=== PATIENT | male | born 1975 | race Hispanic/Latino ===

== ENCOUNTER 2020-08-24 00:03 | Emergency (ER) | payer OTHER ==
[~2020-08-24] VITALS: Ht 172.7 cm; Wt 75.3 kg
[2020-08-24 03:12] VITALS: BP 133/63
[2020-08-24] MEDS ORDERED: KETOROLAC 30MG VIAL (30MG/ML) IV ONE (04:30)
[2020-08-24] MEDS ORDERED: CEFTRIAXONE SODIUM 1 GM IVP ONE (04:30)
[2020-08-24] MEDS ORDERED: IBUP-2070 PO (04:35)
[2020-08-24] MEDS ORDERED: CIPR-278 PO (04:35)
[2020-08-24 05:01] VITALS: BP 129/66
== END 2020-08-24 05:05 | disposition home or self-care (01) ==
LOC: EDH 00:03
DX: S80.12XA Contusion of left lower leg, initial encounter (principal); S80.812A Abrasion, left lower leg, initial encounter; Z79.899 Other long term (current) drug therapy; Z88.1 Allergy status to other antibiotic agents; V09.9XXA Pedestrian injured in unspecified transport accident, initial encounter; Y93.89 Activity, other specified; Y92.89 Other specified places as the place of occurrence of the external cause; Y99.8 Other external cause status
CPT/HCPCS: 73600; 96374; 96375; 99284; J0696; J1885

== ENCOUNTER 2024-11-12 18:51 | Emergency (ER) | payer SELFPAY ==
[~2024-11-12] VITALS: Ht 172.7 cm; Wt 77.1 kg
[~2024-11-12 18:51] MED LIST: CIPR-278 PO; IBUP-1492 PO
[2024-11-12 19:47] LABS: IMMATURE GRANULOCYTE ABSOLUTE 0.01 K/uL (0-1); NUCLEATED RED BLOOD CELLS 0.0 % (0.0-0.19); PLATELET COUNT (AUTO) 117 K/uL (130-400); RED BLOOD CELL COUNT(AUTO) 4.58 MIL/uL (4.50-6.20); RED CELL DISTRIBUTION WIDTH 12.5 % (11.0-15.5); WHITE BLOOD COUNT (AUTO) 4.7 K/uL (4.8-10.8)
[2024-11-12 19:48] LABS: APPEARANCE,URINE CLEAR (CLEAR); GLUCOSE, URINE (UA) NEGATIVE (NEGATIVE); LEUKOCYTE ESTERASE ,URINE NEGATIVE Leu/uL (NEGATIVE); NITRATE,URINE NEGATIVE (NEGATIVE); OCCULT BLOOD,URINE SMALL (NEGATIVE)
--- NOTE | 2024-11-12 19:50 | EKG ---
[facility] Test Date: 2024-11-12 Test Time: 19:45:26 Pat Name: BOBBI SEALS Department: ED Room: Gender: M Director Of Marketing: [id number] : 1975 Requested By: IDALIA WALLACE Order Number: [id number] Reading MD: Maykel Granados Measurements Intervals [place] Rate: 100 P: 56 HI: 153 QRS: 33 QRSD: 81 T: 10 QT: 320 QTc: 413 Interpretive Statements Sinus tachycardia No previous ECG available for comparison Electronically Signed On 11-13-2024 13:23:39 CDT by Maykel Granados Please click the below link to view image of tracing.
[2024-11-12] MEDS: 0.9%NACL 1000ML 2,313 ML IV SCH (19:55)
[2024-11-12 19:58] LABS: ADD UA MICROSCOPIC YES
[2024-11-12 19:58] LABS: CREATININE 0.9 mg/dL (0.5-1.3); GLOMERULAR FILTR. RATE CALC 104.0 mL/min (>90); GLUCOSE,RANDOM 107.0 mg/dL (70-105); SODIUM SERUM 132.0 mmol/L (136-145); UREA NITROGEN, BLOOD 9.0 mg/dL (7-18)
[2024-11-12 20:09] LABS: CREATINE KINASE, TOTAL 131.0 U/L (21-232)
[2024-11-12 20:11] LABS: COVID19 (SARS ANTIGEN RAPID) PRESUMPTIVE NEGATIVE (NEGATIVE); INFLUENZA TYPE A Negative For Type A (NEGATIVE); INFLUENZA TYPE B Negative For Type B (NEGATIVE)
[2024-11-12 20:17] LABS: BAND NEUTROPHILS % (MANUAL) 25 % (0-2); LYMPHOCYTES % (MANUAL) 17 % (22-44); MAN.DIFF COMMENT-IMPRESSION MANUAL DIFFERENTIAL; MONOCYTES % (MANUAL) 5 % (2-9); REACTIVE LYMPHOCYTES 4 % (0-0); SEGMENTED NEUTROPHILS % 49 % (40-70)
[2024-11-12 20:19] LABS: PLATELET MORPHOLOGY COMMENT MARKED DECREASE
--- NOTE | 2024-11-12 20:38 | HMCIMG ---
EXAM: CR Chest, 1 View. CLINICAL HISTORY: cough COMPARISON: None provided. FINDINGS: LUNGS: There is no mass, infiltrate, or acute pulmonary abnormality. PLEURAL SPACES: No evidence of pleural effusion or pneumothorax. MEDIASTINUM: The cardiomediastinal silhouette is within normal limits. BONES: No aggressive appearing osseous lesion seen. IMPRESSION: No acute cardiopulmonary pathology is evident. /[place]
--- NOTE | 2024-11-12 21:22 | ERN ---
ED Note History of Present Illness Stated Complaint: FEVER, COUGH, SOB Chief Complaint: Sepsis Time Seen by MD: 19:15 Time Seen by Midlevel: 19:15 Dictation: The patient is a 48-year-old male with no past medical history who presents to the emergency department with complaints of headache, fever, nonproductive cough, body aches, chest pain when coughing onset Saturday. Reports he was starting to feel better but then he started with the symptoms again yesterday. Denies any abdominal pain, nausea vomiting or diarrhea. Allergies: Coded Allergies: No Known Allergies (Unverified Allergy, Unknown, 08/24/20) Home Meds Active Scripts Ibuprofen (Ibuprofen) 600 Mg Tablet, 600 MG PO Q6H PRN for PAIN for 10 Days, #40 TAB Prov:CAMILO RAMIREZ MD 08/24/20 Ciprofloxacin HCl (Cipro) 500 Mg Tablet, 500 MG PO BID for WOUND , #14 TAB Prov:CAMILO RAMIREZ MD 08/24/20 Past Medical History Past Medical History: No Pertinent History Surgical History: None Family History: Negative Social History: Drugs RN Note Reviewed/Agreed w/PFSH: Yes Review of System Dictation Constitutional: Negative for fever,chills, and weight loss positive for fever, body aches Eyes: Negative for injury, pain,redness, and discharge ENT: Negative for injury,pain or swelling Cardiovascular: Negative for chest pain, palpitations, and edema Respiratory: Negative for shortness of breath, and wheezing, positive for cough Abdomen/GI: Negative for abdominal pain, nausea, vomiting, diarrhea, and constipation Back: Negative for injury and pain : Negative for injury, bleeding and discharge MS/Extremity: Negative for injury and deformity Skin: Negative for rash, and discoloration Neuro: Negative for weakness, numbness, tingling, and seizure positive for headache Psych: Negative for suicide ideation, homicidal ideation, and hallucinations Initial Vital Sign VS Vital Signs Date Time Temp Pulse Resp B/P (MAP) Pulse Ox O2 Delivery O2 Flow Rate FiO2 11/12/24 19:12 101.1 110 22 134/79 95 Room Air 11/12/24 19:28 0 21 Physical Exam Dictation Vital Signs reviewed General Appearance: Alert, oriented x 3, no acute distress, well developed, nourished. Head and Face: non-traumatic. Eyes: PERRL, pink conjunctivas, eyelid no trauma, anterior chamber with arcus senilis. Ears: Pinnas intact and no signs of trauma or erythema ear canals clear and no discharge TM no erythema Nose: No discharge, no bleeding. Oropharynx: Mouth normal, tongue pink. pharynx clear,no erythema, tonsils no exudates, no abscesses noted, mucous membrane moist Neck: Supple, non-tender, no thyromegaly, no masses, no JVD, no bruits Breast:Deferred Chest:No tenderness, no crepitus, no paradoxical movement, no retractions Lungs:Clear, well-ventilated, symmetric, no rales, no wheezing, no rhonchi, no stridor, good breath sounds bilaterally Heart: Regular rate, regular rhythm, no murmur, no gallops Vascular: no peripheral edema, Abdomen: Soft, positive bowel sounds, nondistended, no guarding, nontender, no rebound, no masses no hepatomegaly, no splenomegaly, no Gregorio's sign, no hernias. Rectal: Deferred Genital: Deferred Neurological: Normal speech, motor function intact, sensory function intact Musculoskeletal: Neck nontender, full range of motion, back nontender, full range of motion, Extremities: nontender, full range of motion Skin: Color pink, dry, no turgor, no rash, no lacerations, no abrasions, no contusions. Lymphatic: Deferred Results (Laboratory/Radiology) Laboratory/Radiology Laboratory Tests Test 11/12/24 19:30 11/12/24 19:38 Urine Color LIGHT-YELLOW (YELLOW) Urine Appearance CLEAR (CLEAR) Urine pH 6.0 (5.0-8.0) Urine Specific [place] 1.007 (1.001-1.031) Urine Protein NEGATIVE mg/dL (NEGATIVE) Urine Glucose (UA) NEGATIVE mg/dL (NEGATIVE) Urine Ketones NEGATIVE mg/dL (NEGATIVE) Urine Occult Blood SMALL (NEGATIVE) H Urine Nitrate NEGATIVE (NEGATIVE) Urine Bilirubin NEGATIVE mg/dL (NEGATIVE) Urine Urobilinogen 0.2 mg/dL (0.2-1.0) Urine Leukocyte Esterase NEGATIVE Cate/uL Urine RBC 2-5 /HPF (0-1) H Urine WBC 0-1 /HPF (0-1) Urine Bacteria None /HPF (None Seen) Influenza Type A Antigen Negative For Type A Influenza Type B Antigen Negative For Type B SARS-CoV-2 Antigen (Rapid) PRESUMPTIVE NEGATIVE White Blood Count 4.7 K/uL (4.8-10.8) L Red Blood Count 4.58 MIL/uL (4.50-6.20) Hemoglobin 14.2 g/dL (14.0-18.0) Hematocrit 40.6 % (42-54) L Mean Corpuscular Volume 88.6 fL (79-99) Mean Corpuscular Hemoglobin 31.0 pg (27.0-33.0) Mean Corpuscular Hemoglobin Concent 35.0 g/dL (32.0-36.0) Red Cell Distribution Width 12.5 % (11.0-15.5) Platelet Count 117 K/uL (130-400) L Mean Platelet Volume 11.0 fL (7.5-10.5) H Immature Granulocyte % (Auto) 0.2 % (0-1) Neutrophils (%) (Auto) 71.8 % (40.0-77.0) Lymphocytes (%) (Auto) 19.7 % (21.0-51.0) L Monocytes (%) (Auto) 7.9 % (3.0-13.0) Eosinophils (%) (Auto) 0.0 % (0.0-8.0) Basophils (%) (Auto) 0.4 % (0.0-5.0) Neutrophils # (Auto) 3.3 K/uL (1.8-7.7) Lymphocytes # (Auto) 0.9 K/uL (1.0-4.8) L Monocytes # (Auto) 0.4 K/uL (0.1-1.0) Eosinophils # (Auto) 0.00 K/uL (0.00-0.70) Basophils # (Auto) 0.02 K/uL (0.00-0.20) Absolute Immature Granulocyte (auto 0.01 K/uL (0-1) Segmented Neutrophils % 49 % (40-70) Band Neutrophils % 25 % (0-2) H Lymphocytes % (Manual) 17 % (22-44) L Monocytes % (Manual) 5 % (2-9) Nucleated Red Blood Cells 0.0 % (0.0-0.19) Differential Comment MANUAL DIFFERENTIAL Reactive Lymphocytes 4 % (0-0) H White Cell Morphology Comment Platelet Morphology Comment MARKED DECREASE Red Blood Cell Morphology OVALOCYTES 1+ Sodium Level 132 mmol/L (136-145) L Potassium Level 3.7 mmol/L (3.5-5.1) Chloride Level 96 mmol/L (101-111) L Carbon Dioxide Level 29 mmol/L (21-32) Blood Urea Nitrogen 9 mg/dL (7-18) Creatinine 0.9 mg/dL (0.5-1.3) Glomerular Filtration Rate Calc 104 mL/min (>90) Random Glucose 107 mg/dL (70-105) H Lactic Acid Level 1.0 mmol/L (0.8-2.5) Total Calcium 8.3 mg/dL (8.5-10.1) L Total Creatine Kinase 131 U/L (21-232) Troponin I High Sensitivity 4 ng/L (4-75) REASON: cough ORDERING PHYSICIAN: IDALIA WALLACE [facility]OR[facility] PROCEDURE: CXR1VW - CHEST 1VW EXAM: CR Chest, 1 View. CLINICAL HISTORY: cough COMPARISON: None provided. FINDINGS: LUNGS: There is no mass, infiltrate, or acute pulmonary abnormality. PLEURAL SPACES: No evidence of pleural effusion or pneumothorax. MEDIASTINUM: The cardiomediastinal silhouette is within normal limits. BONES: No aggressive appearing osseous lesion seen. IMPRESSION: No acute cardiopulmonary pathology is evident. /[place] Labs Reviewed?: Yes EKG: (+) rhythm (Sinus tachycardia) EKG Comment: Date:11/12/2024 Time:1944 Ventricular rate:100 FL interval:153 QRS duration:81 QT/QTc:320/413 EKG interpretation: Sinus tachycardia Reviewed by ED Attending no STEMI ED Course ED Course Orders Procedure Category Date Status Time 12 Lead Ekg Tracing- EKG 11/12/24 Complete Technical 19:23 Cbc With Differential LAB 11/12/24 Complete 19:23 Blood Cult KINJAL 11/12/24 In Process 19:23 Urinalysis Profile LAB 11/12/24 Complete 19:23 Chest 1vw RAD 11/12/24 Resulted 19:23 Acetaminophen 500mg PHA 11/12/24 In Process Tab (Tylenol 500mg T 19:30 0.9%Nacl 1000ml (Ns PHA 11/12/24 In Process 1000ml) 19:30 Creatine Kinase, Total LAB 11/12/24 Complete 19:23 Troponin I High LAB 11/12/24 Complete Sensitivity 19:23 Lactic Acid LAB 11/12/24 Complete 19:23 Basic Metabolic Panel LAB 11/12/24 Complete 19:23 Guaifenesin-Codeine PHA 11/12/24 In Process Syrup 5ml (Robitussi 19:30 Covid19 (Sars Antigen LAB 11/12/24 Complete Rapid) 19:23 Influenza Type A & B, LAB 11/12/24 Complete Rapid 19:23 Manual Differential LAB 11/12/24 Complete 19:38 Current Medications Medications (Trade) Dose Ordered Sig/Taye Route PRN Reason Start Time Stop Time Status Last Admin Dose Admin Acetaminophen (TYLenol 500MG TAB) 1,000 mg ONCE PO 11/12/24 19:30 11/12/24 23:30 11/12/24 19:55 Guaifenesin/ Codeine Phosphate (RobiTUSSin AC 5 ML SYRUP) 10 ml ONCE PO 11/12/24 19:30 11/12/24 23:30 11/12/24 19:55 Sodium Chloride 2,313 ml @ 771 mls/hr ONCE IV 11/12/24 19:30 11/13/24 19:29 11/12/24 19:55 Vital Signs Date Time Temp Pulse Resp B/P (MAP) Pulse Ox O2 Delivery O2 Flow Rate FiO2 11/12/24 19:28 101.1 110 22 134/79 95 Room Air* 0 21 11/12/24 19:12 101.1 110 22 134/79 95 Room Air Medical Decision Making MDM The patient is a 48-year-old male with no past medical history who presents to the emergency department with complaints of headache, fever, nonproductive cough, body aches, chest pain when coughing onset Saturday. Reports he was starting to feel better but then he started with the symptoms again yesterday. Denies any abdominal pain, nausea vomiting or diarrhea. CBC showed mild leukopenia, mild thrombocytopenia, chemistry showed mild hyponatremia, hypochloremia, normal renal function, negative troponin, urinalysis unremarkable, serology negative. Chest x-ray showed no acute pathology.. Patient has symptoms consistent with a viral infection. On physical exam patient is in no acute distress, nontoxic appearance. Clear lung sounds bilaterally. Patient will be discharged to follow up with PCP. Differential diagnosis: Pneumonia, ACS, upper respiratory infection, dehydration Need for hospitalization: Patient does not meet criteria for hospitalization. There are no social concerns with this patient. DX & DISP Disposition: Discharge Departure Impression: Primary Impression: Viral illness Additional Impression: URI (upper respiratory infection) Condition: Stable Additional Instructions: Your symptoms correlated with a viral infection. Your chest x-ray showed no pneumonia. Please follow up with your primary doctor in 1-2 days. You can take Tylenol or ibuprofen as needed for fevers. Plenty of fluids. If anything worsens please return to the ER. FOLLOW-UP WITH PRIMARY CARE PROVIDER IN 1 TO 2 DAYS. TAKE MEDICATIONS DIRECTED HERE IN THE EMERGENCY ROOM. OKAY TO CONTINUE HOME MEDICATIONS UNLESS OTHERWISE DISCUSSED DURING YOUR VISIT IN THE EMERGENCY ROOM TODAY. RETURN TO YOUR NEAREST EMERGENCY ROOM IF SYMPTOMS WORSEN OR IF THERE IS NO IMPROVEMENT. CALL 911 IF YOU NEED IMMEDIATE ASSISTANCE. TAKE TYLENOL SPHD-NRB-CBVPLEC NEEDED AND IF NO CONTRAINDICATIONS ARE PRESENT. INCREASE ORAL HYDRATION. A WOUND CULTURE OR URINE CULTURE WAS ORDERED HERE IN THE EMERGENCY ROOM DEPARTMENT PLEASE FOLLOW-UP WITH PRIMARY CARE PROVIDER AND ADVISE THEM TO GET REPEAT PORTS FROM OUR FACILITY. IF YOU HAD ANY MONICA WRAP/SPLINTS THAT WERE APPLIED HERE, PLEASE DO NOT REMOVE THEM UNTIL YOU SEE YOUR PRIMARY CARE OR SPECIALTY. Referrals: SELF,REFERRAL (PCP) Time of Disposition: 21:22 I have reviewed the case, and I agree with, Diagnosis and Plan IDALIA WALLACE Nov 12, 2024 21:22
[2024-11-12 22:14] VITALS: BP 127/72; PULSE 84; RESP 22; TEMP 98.9; O2SAT 95
== END 2024-11-12 22:15 | disposition home or self-care (01) ==
LOC: EDH 18:51
DX: J06.9 Acute upper respiratory infection, unspecified (principal); Z20.822 Contact with and (suspected) exposure to COVID-19
CPT/HCPCS: 99285; 71045; 87426; 82550; 84484; 80048; 85025; 87040 ×2; 87804 ×2; 83605; 81001; 36415; 93005; J7030